=== PATIENT | male | born 1935 | race Caucasian/White ===

== ENCOUNTER 2017-11-05 08:44 | Day surgery (SDC) | payer MEDICARE ==
[~2017-11-05] VITALS: Ht 170.2 cm; Wt 50.3 kg
[~2017-11-05 08:44] MED LIST: AEC81 PO; CLOP75TA14 PO; SIMV40TA5 PO; SODIUM CHLORIDE 0.9% 1000ML 1,000 ML IV ONE; UMEC1DIS IH
[2017-11-05 10:16] VITALS: BP 115/59
[2017-11-05] MEDS ORDERED: PROPOFOL 10 MG/ML 20ML VIAL IV ONE ×2 (11:30)
[2017-11-05 11:38] VITALS: BP 111/63
== END 2017-11-05 12:43 | disposition home or self-care (01) ==
LOC: ENDO 08:44 → DAH 08:44 → ENDO 12:43
PROVIDERS: ATTEND Internal Medicine Gastroenterology
DX: K29.50 Unspecified chronic gastritis without bleeding (principal); K29.80 Duodenitis without bleeding; K44.9 Diaphragmatic hernia without obstruction or gangrene; D62 Acute posthemorrhagic anemia; E78.5 Hyperlipidemia, unspecified; I25.10 Atherosclerotic heart disease of native coronary artery without angina pectoris; J44.9 Chronic obstructive pulmonary disease, unspecified; Z79.899 Other long term (current) drug therapy; Z98.49 Cataract extraction status, unspecified eye; Z98.890 Other specified postprocedural states; Z88.2 Allergy status to sulfonamides; Z87.891 Personal history of nicotine dependence; I73.9 Peripheral vascular disease, unspecified; I45.19 Other right bundle-branch block; I21.09 ST elevation (STEMI) myocardial infarction involving other coronary artery of anterior wall; I10 Essential (primary) hypertension; I45.10 Unspecified right bundle-branch block; I21.3 ST elevation (STEMI) myocardial infarction of unspecified site
CPT/HCPCS: 43239; 88305; 88312; 93005; A4606; J2704 ×2; J7030

== ENCOUNTER 2018-07-13 08:42 | Emergency (ER) | payer MEDICARE ==
[~2018-07-13 08:42] MED LIST changes: -SODIUM CHLORIDE 0.9% 1000ML 1,000 ML IV ONE
== END 2018-07-13 10:32 | disposition home or self-care (01) ==
LOC: EDH 08:42
DX: R09.89 Other specified symptoms and signs involving the circulatory and respiratory systems (principal); E78.5 Hyperlipidemia, unspecified; Z72.0 Tobacco use; Z98.890 Other specified postprocedural states; Z86.718 Personal history of other venous thrombosis and embolism
CPT/HCPCS: 70360; 71046

== ENCOUNTER 2018-09-29 05:37 | Day surgery (SDC) | payer MEDICARE ==
[2018-09-29] VITALS (7 sets, daily range): BP systolic 90–131; BP diastolic 37–62
[~2018-09-29] VITALS: Ht 167.6 cm; Wt 45.4 kg
[2018-09-29] MEDS ORDERED: SODIUM CHLORIDE 0.9% 1000ML 1,000 ML IV ONE (05:51)
[2018-09-29] MEDS ORDERED: MULT-1203 PO (06:18)
[2018-09-29] MEDS ORDERED: PROPOFOL 10 MG/ML 20ML VIAL IV ONE (07:16)
== END 2018-09-29 08:39 | disposition home or self-care (01) ==
LOC: ENDO 05:37 → DAH 05:37 → ENDO 08:39
PROVIDERS: ATTEND Internal Medicine
DX: K29.50 Unspecified chronic gastritis without bleeding (principal); K26.9 Duodenal ulcer, unspecified as acute or chronic, without hemorrhage or perforation; R63.4 Abnormal weight loss; E78.5 Hyperlipidemia, unspecified; I25.10 Atherosclerotic heart disease of native coronary artery without angina pectoris; J44.9 Chronic obstructive pulmonary disease, unspecified; I25.2 Old myocardial infarction; Z87.891 Personal history of nicotine dependence; Z72.89 Other problems related to lifestyle; D50.9 Iron deficiency anemia, unspecified; Z98.49 Cataract extraction status, unspecified eye; Z88.2 Allergy status to sulfonamides
CPT/HCPCS: 43239; 88305; 88342; 93005; A4606; J2704; J7030

== ENCOUNTER 2019-11-11 10:57 | Inpatient (IN) | payer MEDICARE ==
[~2019-11-11 10:57] MED LIST changes: +MULT-1203 PO; +SIMV-46 PO; -SIMV40TA5 PO
[2019-11-11 11:26] LABS: BASOPHILS % (AUTO) 0.8 % (0.0-5.0); EOSINOPHILS % (AUTO) 1.5 % (0.0-8.0); LYMPHOCYTES % (AUTO) 22.8 % (21.0-51.0); MEAN CORPUSCULAR HEMOGLOBIN 24.6 pg (27.0-33.0); MEAN CORPUSCULAR HGB CONC 30.7 g/dL (32.0-36.0); MEAN CORPUSCULAR VOLUME 80.1 fL (79-99); NEUTROPHILS % (AUTO) 62.6 % (40.0-77.0); PLATELET COUNT (AUTO) 305 K/uL (130-400); RED BLOOD CELL COUNT(AUTO) 2.56 MIL/uL (4.50-6.20); RED CELL DISTRIBUTION WIDTH 16.5 % (11.0-15.5)
[2019-11-11 11:43] LABS: CREATININE 1.5 mg/dL (0.5-1.5); POTASSIUM 4.7 mmol/L (3.5-5.1)
[2019-11-11 11:45] LABS: INR 0.92 (0.85-1.15); PARTIAL THROMBOPLASTIN TIME 24.6 SEC (26.3-35.5)
[2019-11-11 11:48] LABS: ALBUMIN 3.5 g/dL (3.5-5.0); BILIRUBIN,TOTAL 0.3 mg/dL (0.2-1.0); TOTAL PROTEIN, SERUM 7.1 g/dL (6.0-8.3)
[2019-11-11 11:52] LABS: HEMATOCRIT 20.5 % (42-54)
[2019-11-11 12:38] LABS: RETICULOCYTE % (AUTO) 1.47 % (0.42-2.23)
[2019-11-11 13:03] LABS: % IRON SATURATION 6.2 % (30-44)
[2019-11-11] MEDS ORDERED: HYDRALAZINE HCL 20 MG/ML VIAL IV PRN (14:15)
[2019-11-11] MEDS ORDERED: ACETAMINOPHEN 325 MG TAB PO PRN ×2 (14:15)
[2019-11-11] MEDS ORDERED: ONDANSETRON HCL 4 MG/2 ML VIAL IV PRN (14:15)
[2019-11-11] MEDS ORDERED: SODIUM CHLORIDE 0.9% 250 ML IV ONE ×2 (14:19→16:28)
[2019-11-11 14:42] LABS: THYROID STIMULATING HORMONE 1.75 uIU/mL (0.36-3.74)
[2019-11-12] MEDS ORDERED: PANTOPRAZOLE SODIUM 80 MG in SODIUM CHLORIDE 0.9% 100 ML IV SCH (09:00)
== END 2019-11-11 18:53 | disposition left against medical advice (07) | DRG 378 ==
LOC: EDH 10:57 → EDHIP 14:01
PROVIDERS: ADMIT Internal Medicine; ATTEND Internal Medicine
PROC: 30233N1 Transfusion of Nonautologous Red Blood Cells into Peripheral Vein, Percutaneous Approach (ICD-10-PCS; principal; 2019-11-11)
DX: K92.2 Gastrointestinal hemorrhage, unspecified (principal); D62 Acute posthemorrhagic anemia; Z53.29 Procedure and treatment not carried out because of patient's decision for other reasons; Z83.3 Family history of diabetes mellitus; Z82.49 Family history of ischemic heart disease and other diseases of the circulatory system; Z88.2 Allergy status to sulfonamides
CPT/HCPCS: 36415; 80053; 82270; 82607; 82728; 82746; 84145; 84443; 84484; 85025; 85610; 85730; 86850; 86900; 86901; 86922; 93005; 99291; C9113; G0378; J7050; P9016